=== PATIENT | female | born 2000 | race Caucasian/White ===

== ENCOUNTER 2025-09-04 19:33 | Emergency (ER) | payer MEDICAID, SELFPAY ==
[2025-09-04] VITALS (24 sets, daily range): BP systolic 90–108; BP diastolic 58–76; PULSE 77–105; RESP 20; TEMP 36.7; O2SAT 97–100
--- NOTE | 2025-09-04 20:30 | RT.EKG_ITS ---
APPROVED REPORT Exam: Resting ECG Reason for Exam: tachycardia Patient Location: E HR:85 bpm ECG Measurements Heart Rate 85 AXIS MA 140 P 76 QRSd 83 QRS 72 QT 360 T 57 QTc 428 Conclusion Sinus rhythm...normal P axis, V-rate 60- [address] segment or T wave abnormalities to suggest occlusive OR
--- NOTE | 2025-09-04 20:36 | ED.GENADUL_ITS ---
Discharge Plan Disposition Patient Disposition: Home Condition: Good Discharge Details Clinical Impression: Acute urticaria Primary Care Provider: Flo Miranda ED Provider: Deepthi Whitten Home Meds and New Rx's Prescriptions: New prednisone 20 mg tablet 40 mg PO DAILY 5 Days Qty: 10 0RF Discontinued diphenhydramine HCl [Allergy Relief(diphenhydramin)] 12.5 mg/5 mL liquid 25 mg PO Q8H PRN sulfamethoxazole 500 mg tablet 500 mg PO 2XD ondansetron 4 mg tablet,disintegrating 4 mg PO BID-TID PRN Discharge Instructions Instructions: Hives, Allergic Reaction ED Additional Instructions: -Take 25-50mg of diphenhydramine (benadyrl) over the counter every 6 hours while you still have an itchy rash. -Prednisone 40mg once a day for the next 5 days. -Call your primary care doctor in the morning to schedule an appointment to be seen within the next 48 hours to followup on your visit here. -Return to the emergency department for new or worsening symptoms including fever, worsening rash, wheezing/difficutly breathing, swelling in your tongue or throat, vomiting/diarrhea, abdominal pain, or if you have any other concerns. HPI General Mode of arrival: ambulatory . Date/Time Provider Initiated Documentation: 09/04/25 19:43 . Limitations to Documentation: no limitations . Information obtained by: patient and family . HPI Narrative: 25yo previously healthy female presenting for pruritic rash. Has felt generally unwell for the past week (generalized weakness, nausea without vomiting); was diagnosed with UTI and completed a course of abx yesterday. Has also been taken zofran for nausea. This morning noted a diffuse red itchy rash which has been worsening throughout the day. Some shortness of breath; no wheezing, chest tightness, vomiting, or abdominal pain. No fevers, headache, or neck pain. Has never had a similar rash before. Tried benadryl at home without improvement. Otherwise in her usual state of health. Related Data Home Medications ?Medication ?Instructions ?Recorded ?Confirmed prednisone 20 mg tablet 40 mg (2 x 20 mg) PO DAILY 5 days 09/04/25 #10 tabs Previous Rx's ?Medication ?Instructions ?Recorded prednisone 20 mg tablet 40 mg (2 x 20 mg) PO DAILY 5 days 09/04/25 #10 tabs Allergies Allergy/AdvReac Type Severity Reaction Status Date / Time ondansetron (From Zofran) Allergy Intermediate Hives Verified 09/04/25 23:33 sulfamethoxazole Allergy Intermediate Hives Verified 09/04/25 23:33 General Stated Complaint: Allergic PIO: 3 Review of Systems Narrative: see HPI Exam Narrative Exam Narrative: General: Alert, well appearing, well nourished, in no acute distress. Head: Normocephalic, atraumatic Neck: Trachea midline, ?Neck supple.? No cervical lymphadenopathy ENT: ?MMM.? No oropharygeal lesions or exudate.? Cardiac: ?RRR, no murmurs appreciated Resp: No respiratory distress. CTAB. Abd: ?Soft, non-distended, nontender Skin: Warm and well perfused. Diffuse erythematous maculopaular rash on back, abdomen, face. Present but less pronounced on UE. No involvement of LE, palms, soles, or MM. Extremities: ?No deformities.? No peripheral edema. Neurologic: ?Alert, GGC 15. Moves all extremities freely against gravity Course Vital Signs Vital signs: Vital Signs Temperature 36.7 C 09/04/25 19:41 Pulse 105 H 09/04/25 19:41 Respiratory Rate 20 09/04/25 19:41 Blood Pressure 108/76 09/04/25 19:41 Pulse Oximetry 98 09/04/25 19:41 Temperature 36.7 C 09/04/25 19:41 Pulse 105 H 09/04/25 19:41 Respiratory Rate 20 09/04/25 19:41 Respiratory Effort Normal 09/04/25 19:45 Respiratory Pattern Normal 09/04/25 19:45 Blood Pressure 108/76 09/04/25 19:41 Blood Pressure Position Sitting 09/04/25 19:41 Pulse Oximetry 98 09/04/25 19:41 Oxygen Delivery Method Room Air 09/04/25 19:41 Oxygen Flow Rate 0 09/04/25 19:41 Medical Decision Making 25yo previously healthy female presenting for pruritic rash. Has felt generally unwell for the past week (generalized weakness, nausea without vomiting); was diagnosed with UTI and completed a course of abx yesterday and has also been taken zofran for nausea. This morning noted a diffuse red itchy rash which has been worsening throughout the day, tonight preventing her from sleeping. Slightly tachycardiac after ambulating into triage with HR 100's, vital signs otherwise reassuring. Afebrile. Very well appearing on exam. Mild subjective shortness of breath; lungs CTAB with absolutely no wheezing. Diffuse erythematous maculopapular rash which spares palms, soles, and MM. Negative nikolskys. No pettechiae. EKG NSR. History and exam not consistent with anaphalyxis, TEN/SJS, staph/toxic shock, DRESS, meningitis, DIC, or other emergent pathology; would not get labs. Will treat urticaria with benadyrl and famotidine, reassess. On reassessment remains well appearing with normal vital signs. Slight improvement in rash particularly on back however remains very itchy. Will add prednisone. On subsequent reassessment rash continuing to improve, remains present on abdomen but largely resolved elsewhere. Improvement in pruritus as well. Will prescribe 5 day course of prednisone and discharge home. Discharge instructions and return precautions were reviewed with patient who verbalized understanding. All questions were answered and she is in full agreement with the plan. PFSH All Active Problems (Updated 09/04/25 @ 23:24 by Deepthi Whitten MD) Acute urticaria (Acute) Social History Smoking risk assessment performed?: No
[2025-09-04] MEDS: diphenhydrAMINE 25 MG CAP 50 MG PO (20:57)
[2025-09-04] MEDS: Famotidine 20 MG TAB PO (20:57)
[2025-09-04] MEDS: predniSONE 20 MG TAB 80 MG PO (22:23)
== END 2025-09-04 23:41 | disposition home or self-care (01) ==
PROVIDERS: Emergency Provider Student in an Organized Health Care Education/Training Program; PCP Emergency Medicine
DX: L50.9 Urticaria, unspecified (principal)
CPT/HCPCS: 99283 ×2; 93005; 93010; J7512